=== PATIENT | male | born 1995 ===

== ENCOUNTER 2016-09-01 01:47 | Emergency (ER) | payer SELFPAY ==
[2016-09-01 02:27] VITALS: BP 102/46
[2016-09-01 04:29] LABS: CALCIUM 8.4 mg/dL (8.5-10.1); CARBON DIOXIDE 26.4 mmol/L (21-32); CHLORIDE SERUM 108 mmol/L (98-107); CREATININE SERUM 1.1 mg/dL (0.7-1.3); GFR1 > 60 mL/min; GLUCOSE SERUM 139 mg/dL (74-106); POTASSIUM SERUM 4.2 mmol/L (3.5-5.1); SODIUM SERUM 143 mmol/L (136-145)
== END 2016-09-01 05:02 | disposition other institution (70) ==
LOC: ED 01:47
PROVIDERS: Emergency Medicine Emergency Medical Services
DX: T51.0X1A Toxic effect of ethanol, accidental (unintentional), initial encounter (principal); Y92.89 Other specified places as the place of occurrence of the external cause
CPT/HCPCS: G0480; J2405

== ENCOUNTER 2016-09-01 01:47 | Emergency (ER) | payer OTHER | END 2016-09-01 05:02 | disposition other institution (70) | LOC: ED 01:47 | DX: Z02.89 Encounter for other administrative examinations (principal); T51.0X1A Toxic effect of ethanol, accidental (unintentional), initial encounter; Y92.89 Other specified places as the place of occurrence of the external cause ==